=== PATIENT | female | born 1975 | race Caucasian/White ===

== ENCOUNTER 2020-04-23 00:45 | Outpatient (CLI) | payer OTHER, SELFPAY ==
[2020-04-23 18:47] LABS: SARS-CoV-2 RNA PCR Negative
== END 2020-04-23 00:46 | disposition home or self-care (01) ==
LOC: ANHCOVIDDT 00:45
PROVIDERS: Visit Provider Obstetrics & Gynecology
DX: Z01.812 Encounter for preprocedural laboratory examination (principal); Z20.822 Contact with and (suspected) exposure to COVID-19
CPT/HCPCS: C9803; U0003; U0005

== ENCOUNTER 2020-04-23 08:50 | Outpatient (CLI) | payer OTHER, SELFPAY ==
[2020-04-23 10:22] LABS: Anion Gap 4 mmol/L (8-16); Blood Urea Nitrogen 14 mg/dL (7-17); Calcium 9.1 mg/dL (8.4-10.2); Carbon Dioxide 28 mmol/L (22-30); Chloride 106 mmol/L (98-107); Estimated Glomerular Filt Rate > 60; Glucose 92 mg/dL (65-105); Potassium 4.4 mmol/L (3.4-5.0); Sodium 138 mmol/L (137-145)
== END 2020-04-23 08:51 | disposition home or self-care (01) ==
LOC: ANHLAB 08:52
PROVIDERS: Visit Provider Anesthesiology
DX: Z01.818 Encounter for other preprocedural examination (principal); T50.2X5A Adverse effect of carbonic-anhydrase inhibitors, benzothiadiazides and other diuretics, initial encounter
CPT/HCPCS: 36415; 80048

== ENCOUNTER 2020-04-27 02:16 | Day surgery (SDC) | payer OTHER, SELFPAY ==
[2020-04-15 14:15] VITALS: BMI 27.4
[2020-04-27 10:02] VITALS: BP 120/79; PULSE 65; RESP 16; TEMP 36.4; O2SAT 100
[2020-04-27] MEDS: ACETAMINOPHEN 500 MG TABLET 1000 MG PO (10:02)
[2020-04-27] MEDS: LACTATED RINGERS 1,000 ML 30 ML IV CONT (10:45)
--- NOTE | 2020-04-27 11:03 | WPDANESEPPF ---
Anes - Initial Pre Proc Eval Procedure: Operation Date: 04/27/20 12:00 Proposed Procedures p Hysteroscopy, Dilation and Curettage with Akua, Removal Intrauterine Device - Robert Phipps MD Date/Time: 04/27/20 11:03 Surgeon: Robert Phipps MD Pre Op Diagnosis: heavy bleeding Patient Data Age: 44 Gender: F Height: 1.73 m Weight: 85.8 kg Last Vital Signs Temp 36.4 C L 04/27/20 10:02 Pulse 65 04/27/20 10:02 Resp 16 04/27/20 10:02 BP 120/79 04/27/20 10:02 Pulse Ox 100 04/27/20 10:02 Allergies Allergy/AdvReac Type Severity Reaction Status Date / Time Sulfa (Sulfonamide AdvReac Mild Rash Unverified 04/27/20 10:03 Antibiotics) Home Medications Medication Instructions Recorded Confirmed Type multivit with min-folic acid 1 tablet PO DAILY 04/15/20 04/27/20 History [Adult One Daily Multivitamin] semaglutide [Ozempic] 0.25 mg SUBCUT WEEKLY 04/15/20 04/27/20 History sertraline 50 mg PO DAILY 04/15/20 04/27/20 History spironolactone 100 mg PO DAILY 04/15/20 04/27/20 History Patient hx anesthesia problems: none Family hx anesthesia problems: none [facility] Past Medical History Medical History (Updated 04/27/20 @ 11:03 by Javier Oakes MD) Overweight (BMI 25.0-29.9) Social History Social History Smoking status: Never smoker Living arrangements: with family Spiritual care concerns: No Anes - Eval Final PreProcedure Day of Procedure 04/27/20 11:03 Patient weight: overweight Heart: regular rate and rhythm Lungs: clear to auscultation and normal air movement Airway: Mallampati scale class II Neurological: alert and oriented Last oral intake: >/= 8 hours ASA classification: II Emergent: no Anesthetic plan: proceed Anesthesia type and monitoring: general GIVS and LMA Informed Consent: The patient's anesthetic plan and its attendant risks and benefits were discussed with the patient/family/POA. Questions were solicited and answers provided to the satisfaction of the patient/family/POA.
--- NOTE | 2020-04-27 12:22 | PM.IMHP ---
H&P: HPI History of Present Illness Date/Time: 04/27/20 12:22 Chief Complaint: Irregular bleeding Narrative: 44 y/o whose has had a vasectomy. She has menometrorrhagia which is treated with a progestin containing IUD. The heaviness of her periods has improved, but she still has irregular timing to her menses. She is interested in an endometrial ablation. Review of Systems Review of Systems: All systems reviewed & are unremarkable except as noted in HPI and below PMFSH Past Medical History Medical History Overweight (BMI 25.0-29.9) Social History Social History Smoking status: Never smoker Living arrangements: with family Spiritual care concerns: No Meds Home Medications and Allergies Home Medications Medication Instructions Recorded Confirmed Type multivit with min-folic acid 1 tablet PO DAILY 04/15/20 04/27/20 History [Adult One Daily Multivitamin] semaglutide [Ozempic] 0.25 mg SUBCUT WEEKLY 04/15/20 04/27/20 History sertraline 50 mg PO DAILY 04/15/20 04/27/20 History spironolactone 100 mg PO DAILY 04/15/20 04/27/20 History Allergies Allergy/AdvReac Type Severity Reaction Status Date / Time Sulfa (Sulfonamide AdvReac Mild Rash Verified 04/27/20 11:33 Antibiotics) Vital Signs Vital Signs - 24 hr 04/27/20 10:02 Temperature 36.4 C L Pulse Rate 65 Respiratory Rate 16 Blood Pressure 120/79 Pulse Oximetry 100 Exam Const: Orientation/consciousness: patient oriented x3 Other: Well-developed, well-nourished female in no acute distress. Neck: Thyroid: thyroid normal Lymphatic: no lymphadenopathy noted (in neck, axilla or inguinal nodes) Resp: Effort & Inspection: normal respiratory effort Auscultation: clear to auscultation bilaterally Cardio: Rate: regular rate Rhythm: regular rhythm Heart sounds: S1 normal heart sound present and S2 normal heart sound present GI: Other: ABD: Soft, nontender, nondistended. No guarding or rebound tenderness. No hepatosplenomegaly. : General: Yes no CVA tenderness Other: External genitalia: normal female hair distribution, without lesion. Urethral meatus: no lesion, non prolapsed. Bladder: no mass, nontender Vagina: well-estrogenized, without lesion or discharge. No cystocele or rectocele. Cervix: no lesion or discharge. IUD strings are noted. Uterus: small, anteverted, freely mobile, nontender Adnexa: no mass or tenderness. Anus/perineum: no lesions, nontender Back/Spine/Pelvis: Back: no CVA tenderness Skin: General skin exam: normal color and no rashes or lesions noted Neuro: General: patient oriented x3 Extrem: Other: Extremities: nontender with no edema Psych: Mental Status: mental status grossly normal Affect: normal affect Assessment and Plan Assessment and plan (1) Menometrorrhagia: Code(s): N92.1 - Excessive and frequent menstruation with irregular cycle Status: Acute Assessment and Plan: She is interested in surgical management as above. Specifically, I have offered her an IUD removal, hysteroscopy, D&C and endometrial ablation. She understands risks of surgery to include risks of anesthesia, risks of pain, infection, bleeding, blood products, thromboembolic phenomena and damage to adjacent structures such as bowel, bladder, ureters, blood vessels and nerves. She understands all these risks and elects to proceed with surgery.
--- NOTE | 2020-04-27 12:25 | WPDHPUPDATE1 ---
History and Physical Update Update Date/Time: 04/27/20 12:25 History and Physical has been reviewed, including an updated exam of the patient. There are NO changes in the patient's condition. Risks, benefits, and alternatives have been discussed and questions answered. Patient agrees to proceed with procedure.
[2020-04-27] MEDS: LIDOCAINE HCL 1% LOCAL INJ 10 ML VIAL INFILTRATE (12:43)
--- NOTE | 2020-04-27 12:51 | SUR.OPER ---
IUD removed per Dr Phipps IUD assessed and intact as per Dr Phipps/to dispose of IUD.
--- NOTE | 2020-04-27 13:02 | P.OP_ITS ---
Procedure Note - Detailed Date of procedure: 04/27/20 Pre-op diagnosis: heavy bleeding Menometrorrhagia Post-op diagnosis: same Procedure performed: Removal of IUD Hysteroscopy Dilation and sharp curettage Endometrial ablation Description of procedure: The patient was taken to the operating room where she was prepared and draped in the usual sterile fashion in the dorsal lithotomy position. The bladder was drained with a red rubber catheter. A sterile speculum was placed into the vagina. The anterior lip of the cervix was grasped with single-tooth tenaculum. Ten mL of 1% lidocaine was administered in a para cervical block. The cervix was then gently dilated using Hegar dilators until an 8 mm dilator could be passed. Hysteroscopy was performed using sterile saline as a distention medium. Findings are as noted above. Sharp curettage was then performed, and endometrial curettings were collected on a Telfa pad and passed off to be sent to pathology. Finally, the the Akua device was advanced and endometrial ablation commenced without difficulty. The device was withdrawn and a second look was taken using the hysteroscope. Excellent coverage of the endometrial cavity was noted. The tenaculum was removed. Hemostasis was excellent. Sponge, lap, needle and instrument counts were correct. The patient was awakened and taken to the recovery room in stable condition. I was present and scrubbed through the entire procedure. Implants: None Anesthesia: MAC and local (1% lidocaine paracervical block) Surgeon: Robert Phipps MD Estimated blood loss (mL): 10 Drains: No Packing: No Pathology: yes (endometrial curettings) Complications: None Condition: stable Disposition: PACU Findings: IUD was intact. Endometrial cavity was unremarkable. Both tubal ostia seen. The uterus sounded to a depth of 7.5 cm with a cervical length of 3.5 cm, giving a subtracted uterine cavity length of 4 cm.
[2020-04-27 13:10] VITALS: BP 124/61; PULSE 74; RESP 16; O2SAT 100
[2020-04-27 13:35] VITALS: BP 118/73; PULSE 64; RESP 14
[2020-04-27] MEDS: oxyCODONE HCL (*CRX) 5 MG TAB IR PO (14:03)
[2020-04-27 14:05] VITALS: BP 96/58; PULSE 63; RESP 14
[2020-04-27] MEDS: SCOPOLAMINE 1.5 MG PATCH TRANSDERM (14:50)
== END 2020-04-27 14:55 | disposition home or self-care (01) ==
PROVIDERS: Visit Provider Obstetrics & Gynecology
PROC: 0U5B8ZZ Destruction of Endometrium, Via Natural or Artificial Opening Endoscopic (ICD-10-PCS; CPT 58563; principal; 2020-04-27 12:00)
DX: N92.1 Excessive and frequent menstruation with irregular cycle (principal); Z30.432 Encounter for removal of intrauterine contraceptive device
CPT/HCPCS: 58563; 36415; 80048; 88305; A9270; C9803; J2250; J2405; J2704; J3010; J7030; J7120; U0003; U0005